=== PATIENT | male | born 1945 | race Caucasian/White ===

== ENCOUNTER 2016-04-24 15:51 | Inpatient (IN) | payer MEDICARE, BC ==
[~2016-04-24] VITALS: Ht 180.3 cm; Wt 113.1 kg
[~2016-04-24 15:51] MED LIST: ALAVERT10 M1 PO; ALIGN; ALLEGRA 180MG180 MG PO; ALLEGRA180 MG PO; ANDROGEL1.62% TOP; ANTIVERT 25MG25 MG PO; ASPIRIN 32325 MG/TA1; ASPIRIN 32325 MG/TAB PO; ASPIRIN E.C.325 MG PO; B100 COMPLEX UL1 TA1 PO; BALANCE B-1001 TA1 PO; BALANCE B-1001 TAB; BORAGE OIL PO; CALCIUM 600MG+D1 TAB PO; CALCIUM CITRATE1 TA6 PO; CALTRATE 600 +1 TAB PO; CENTRUM1 TAB PO; CINNAMON500 MG; CIPRO 500MG TA500 MG PO; CLARITIN 1010 MG/TAB PO; CLARITIN10 MG PO; CLOPIDOGREL; COLACE 100100 MG/CAP PO; CRESTOR20 MG PO; DHEA 10 MG TAB1 EACH PO; DIOVAN 160MG160 MG PO; DIOVAN 40MG40 MG PO; DIOVAN160 M1 PO; EFFIENT10 M1 PO; EFFIENT10 MG PO; FARXIGA5 PO; FISH OIL500 MG PO; FLEXERIL 1010 MG/TAB PO; FLOMAX 0.40.4 MG/CAP PO; FORTAMET1000 MG PO; GARCINIA CAMBOGIA PO; GINSENG PO; GINSENG100 M1 PO; GLUCOPHAGE XR500 M1 PO; GLUCOSAMINE & C1 CA1 PO; GLUCOSAMINE CHO1 CAP PO; HEXAVITAMIN1 TA1 PO; JANUVIA 100MG100 MG PO; JANUVIA25 MG PO; LEADER NATURAL1 SGL PO; LIORESAL 1010 MG/TAB PO; LIPITOR 40MG TA40 MG PO; MAGNESIUM250 M1 PO; MICARDIS80 MG PO; MULTI VITAMINS1 TAB PO; NATURAL POTASS595 MG PO; NITROSTAT0.4 MG SL; NITROSTAT0.4 MG/TAB SL; NORCO 325 MG-51 TAB PO; NORCO 325 MG-7.1 TAB PO; NORVASC 5MG5 MG/TAB PO; OMEGA PO; OMEGA-3 FISH1200 MG PO; PERCOCET 325 MG1 TA2 PO; PERCOCET 325 MG1 TA3 PO; PHARMASSURE ZIN50 MG PO; POTASSIUM GLUC550 M1; POTASSIUM99 M2 PO; PROBIOTIC FORMU1 CAP; PROBIOTIC-MAJOR PO; SAW PALMETTO160 M1 PO; SINEMET 25/101 UDTAB PO; TESTIM1% TD; TOPROL XL50 MG PO; TYLENOL 500MG500 MG PO; TYLENOL EXTRA500 M1 PO; Tylenol Extra Streng; ULTRAM 50MG TAB50 MG PO; ULTRAM100 MG PO; VALIUM 5MG T5 MG/TAB PO; VITAMIN D31000 I1 PO; VITAMIN E 400 U4001 PO; VITAMINC1000TA PO; VOLTAREN25 MG PO; ZEBETA10 MG PO; ZEGERID 20 MG-11 CAP PO; ZINC50 M1 PO; ZYRTEC 10MG10 MG PO; ZYRTEC10 MG PO; [UNRECOGNIZED DRUG - OTHER] PO
[2016-04-24] MEDS ORDERED: LIPITOR 40MG TA40 MG PO (16:15)
[2016-04-24] MEDS ORDERED: PREGNENOLONE PO (16:19)
[2016-04-24] MEDS ORDERED: CLARITIN 1010 MG/TAB PO (16:20)
[2016-04-24] MEDS ORDERED: ZYRTEC 10MG10 MG PO (16:22)
[2016-04-24] MEDS ORDERED: AYR SALINE MIST50 ML NS (16:22)
[2016-04-24 16:39] LABS: BASO % 0.4 % (0.0-2.0); EOS # 0.3 (0.0-0.7); EOS % 3.7 % (0-4.0); GRAN # 5.1 (1.4-6.5); GRAN % 69.1 % (42.2-75.2); HEMATOCRIT 46.8 % (42.0-52.0); HEMOGLOBIN 15.6 g/dl (13.5-18.0); LYMPH # 1.4 (1.2-3.4); LYMPH % 19.2 % (20.0-51.0); MEAN CELL VOLUME 94 fl (80.0-100.0); MEAN CORPUSCULAR HEMOGLOBIN 32 pg (27.0-31.0); MEAN CORPUSCULAR HGB CONC 33 g/dl (33.0-37.0); MONO # 0.5 (0.1-0.6); MONO % 7.3 % (1.7-9.3); PLATELET COUNT 215 K/mm3 (130-400); RED BLOOD COUNT 4.96 M/mm3 (4.20-5.60); REDCELL DISTRIBUTION WIDTH-CV 12.5 % (11.5-14.5); WHITE BLOOD COUNT 7.4 K/mm3 (4.8-10.8)
[2016-04-24 16:45] LABS: PROTHROMBIN TIME 10.9 SECONDS (9.7-12.8)
[2016-04-24 16:48] LABS: PARTIAL THROMBOPLASTIN TIME 33.4 SECONDS (26.0-37.0)
[2016-04-24 16:50] LABS: ADJUSTED CALCIUM 9.8 mg/dL (8.4-10.2); ALANINE AMINOTRANSFERASE 35 U/L (21-72); ALKALINE PHOSPHATASE 105 U/L (50-136); ANION GAP 12 mmol/L (7-16); BILIRUBIN,TOTAL 0.8 mg/dL (0.0-1.0); BLOOD UREA NITROGEN 17 mg/dL (9-20); CALCIUM 9.8 mg/dL (8.4-10.2); CARBON DIOXIDE 26 mmol/L (22-30); CHLORIDE 99 mmol/L (98-107); CREATININE, serum 0.95 mg/dL (0.66-1.25); GLUCOSE 159 mg/dL (74-106); POTASSIUM 4.8 mmol/L (3.4-5.0); SODIUM 137 mmol/L (137-145); TOTAL PROTEIN 7.3 gm/dL (6.4-8.2)
[2016-04-24 17:02] LABS: B-TYPE NATRIURETIC PEPTIDE 216 pg/mL (0-125); TROPONIN-I < 0.012 ng/mL (0.000-0.034)
[2016-04-24 21:38] VITALS: BP 155/82; PULSE 73; TEMP 98.2
[2016-04-25] VITALS (7 sets, daily range): BP systolic 126–175; BP diastolic 62–78; PULSE 58–77; TEMP 97.5–98.1
[2016-04-26] VITALS (12 sets, daily range): BP systolic 123–151; BP diastolic 65–76; PULSE 64–79; TEMP 79.9–98.7
[2016-04-27] VITALS (9 sets, daily range): BP systolic 128–163; BP diastolic 66–91; PULSE 78–88; TEMP 97.6–99.5
[2016-04-28] VITALS (12 sets, daily range): BP systolic 110–139; BP diastolic 59–78; PULSE 49–84; TEMP 97.3–98.2
[2016-04-29 04:58] VITALS: BP 171/84; PULSE 75; TEMP 99.4
[2016-04-29 09:28] LABS: BASO % 0.2 % (0.0-2.0); EOS # 0.2 (0.0-0.7); EOS % 2.6 % (0-4.0); GRAN # 6.3 (1.4-6.5); GRAN % 76.9 % (42.2-75.2); HEMATOCRIT 44.6 % (42.0-52.0); HEMOGLOBIN 14.6 g/dl (13.5-18.0); LYMPH # 1.2 (1.2-3.4); LYMPH % 14.5 % (20.0-51.0); MEAN CELL VOLUME 97 fl (80.0-100.0); MEAN CORPUSCULAR HEMOGLOBIN 32 pg (27.0-31.0); MEAN CORPUSCULAR HGB CONC 33 g/dl (33.0-37.0); MEAN PLATELET VOLUME 10.5 fl (7.4-10.4); MONO # 0.4 (0.1-0.6); MONO % 5.4 % (1.7-9.3); PLATELET COUNT 207 K/mm3 (130-400); RED BLOOD COUNT 4.61 M/mm3 (4.20-5.60); REDCELL DISTRIBUTION WIDTH-CV 12.9 % (11.5-14.5); WHITE BLOOD COUNT 8.2 K/mm3 (4.8-10.8)
[2016-04-29 09:35] LABS: ALBUMIN 3.4 gm/dL (3.5-5.0); CREATININE, serum 0.91 mg/dL (0.66-1.25); MAGNESIUM 1.6 mg/dL (1.6-2.3); PHOSPHOROUS 2.7 mg/dL (2.5-4.5); POTASSIUM 4.5 mmol/L (3.4-5.0)
[2016-04-29 10:04] VITALS: BP 133/65; PULSE 76; TEMP 98.1
[2016-04-29 13:47] VITALS: BP 108/59; PULSE 69; TEMP 98
[2016-04-29 17:35] VITALS: BP 134/61; PULSE 63; TEMP 97.9
[2016-04-29 18:15] LABS: PH 5 (5-8); SQUAMOUS EPITHELIAL None Seen /hpf; URINE APPEARANCE Clear; URINE BACTERIA None Seen /hpf; URINE BILIRUBIN Negative (NEGATIVE); URINE BLOOD 1+ (NEGATIVE); URINE COLOR Amber; URINE GLUCOSE 3+ (NEGATIVE); URINE KETONE Negative (NEGATIVE); URINE UROBILINOGEN Negative (NEGATIVE); URINE WBC 0-2 /hpf
[2016-04-29 21:11] VITALS: BP 143/67; PULSE 78; TEMP 98.4
[2016-04-30] VITALS (335 sets, daily range): BP systolic 108–154; BP diastolic 52–88; PULSE 61–84; TEMP 97.5–99.6; O2SAT 77–100
[2016-04-30] MEDS ORDERED: FARXIGA10 PO (20:53)
[2016-04-30] MEDS ORDERED: POTASSIUM PO (21:06)
[2016-05-01] VITALS (557 sets, daily range): BP systolic 104–122; BP diastolic 58–78; PULSE 77–86; TEMP 97.9–99.8; O2SAT 87–99
[2016-05-01 05:59] LABS: BASO % 0.1 % (0.0-2.0); EOS # 0.3 (0.0-0.7); EOS % 3.7 % (0-4.0); GRAN # 6.6 (1.4-6.5); HEMATOCRIT 43.9 % (42.0-52.0); HEMOGLOBIN 14.2 g/dl (13.5-18.0); LYMPH # 0.9 (1.2-3.4); LYMPH % 10.3 % (20.0-51.0); MEAN CELL VOLUME 98 fl (80.0-100.0); MEAN CORPUSCULAR HEMOGLOBIN 32 pg (27.0-31.0); MEAN CORPUSCULAR HGB CONC 32 g/dl (33.0-37.0); MEAN PLATELET VOLUME 9.7 fl (7.4-10.4); MONO # 0.6 (0.1-0.6); MONO % 7.4 % (1.7-9.3); PLATELET COUNT 226 K/mm3 (130-400); REDCELL DISTRIBUTION WIDTH-CV 12.8 % (11.5-14.5); WHITE BLOOD COUNT 8.4 K/mm3 (4.8-10.8)
[2016-05-01 06:15] LABS: ALBUMIN 3.2 gm/dL (3.5-5.0); CALCIUM 8.9 mg/dL (8.4-10.2); CREATININE, serum 0.93 mg/dL (0.66-1.25); MAGNESIUM 1.6 mg/dL (1.6-2.3); PHOSPHOROUS 3.3 mg/dL (2.5-4.5); POTASSIUM 4.7 mmol/L (3.4-5.0)
[2016-05-01] MEDS ORDERED: GLUCOPHAGE1000 MG PO (10:25)
[2016-05-02] VITALS (8 sets, daily range): BP systolic 106–145; BP diastolic 49–72; PULSE 73–94; TEMP 97.8–99.5
[2016-05-03] VITALS (8 sets, daily range): BP systolic 112–155; BP diastolic 51–65; PULSE 63–80; TEMP 96.1–98.8
[2016-05-04 01:00] VITALS: BP 142/59; PULSE 67; TEMP 97.7
[2016-05-04 04:51] VITALS: BP 156/68; PULSE 66; TEMP 98.4
[2016-05-04 09:30] VITALS: BP 131/58; PULSE 69; TEMP 98.1
[2016-05-04 13:28] VITALS: BP 125/58; PULSE 66; TEMP 98.5
[2016-05-04 17:50] VITALS: BP 147/64; PULSE 66; TEMP 98.1
[2016-05-04 21:48] VITALS: BP 145/69; PULSE 65; TEMP 98.4
[2016-05-05 05:12] VITALS: BP 147/72; PULSE 63; TEMP 97.2
[2016-05-05 07:00] VITALS: BP 149/72; PULSE 68; TEMP 97.4
[2016-05-05 10:00] VITALS: BP 138/62; PULSE 68; TEMP 97.8
[2016-05-05 15:05] VITALS: BP 122/67; PULSE 66; TEMP 98.2
[2016-05-05 18:13] VITALS: BP 122/63; PULSE 65; TEMP 98.1
[2016-05-05 22:47] VITALS: BP 123/56; PULSE 60; TEMP 98.1
[2016-05-06 06:00] VITALS: BP 145/66; PULSE 64; TEMP 97.5
[2016-05-06 07:05] VITALS: BP 130/63; PULSE 66; TEMP 97.8
[2016-05-06 09:59] VITALS: BP 132/60; PULSE 64; TEMP 97.4
[2016-05-06 13:14] VITALS: BP 124/66; PULSE 59; TEMP 97.5
[2016-05-06 13:19] LABS: INR 1.2 (0.8-3.0); PROTHROMBIN TIME 12.8 SECONDS (9.7-12.8)
[2016-05-06 17:25] VITALS: BP 147/57; PULSE 69; TEMP 97.2
== END 2016-05-06 22:00 | disposition home or self-care (01) | DRG 165 ==
LOC: COL.ER 15:51 → SURG 19:34 → ICU 04-25 11:28 → SURG 05-01 15:00
PROVIDERS: Family Medicine; Surgery; Urology
PROC: 0W9900Z Drainage of Right Pleural Cavity with Drainage Device, Open Approach (ICD-10-PCS; 2016-04-24)
PROC: 0W9900Z Drainage of Right Pleural Cavity with Drainage Device, Open Approach (ICD-10-PCS; 2016-04-26)
PROC: 0W9930Z Drainage of Right Pleural Cavity with Drainage Device, Percutaneous Approach (ICD-10-PCS; 2016-04-27)
PROC: 0W9930Z Drainage of Right Pleural Cavity with Drainage Device, Percutaneous Approach (ICD-10-PCS; 2016-04-28)
PROC: 0B5N4ZZ Destruction of Right Pleura, Percutaneous Endoscopic Approach (ICD-10-PCS; 2016-04-30)
PROC: 0BBC4ZX Excision of Right Upper Lung Lobe, Percutaneous Endoscopic Approach, Diagnostic (ICD-10-PCS; principal; 2016-04-30 15:45)
DX: J93.11 Primary spontaneous pneumothorax (principal); I25.10 Atherosclerotic heart disease of native coronary artery without angina pectoris; Z95.5 Presence of coronary angioplasty implant and graft; E11.9 Type 2 diabetes mellitus without complications; I10 Essential (primary) hypertension; R31.9 Hematuria, unspecified; G47.33 Obstructive sleep apnea (adult) (pediatric); J43.9 Emphysema, unspecified
CPT/HCPCS: A7048; A9284; G0378; J0690; J1170; J1650; J1815; J2250; J2270; J2704; J3010; J7030; J7120

== ENCOUNTER 2018-04-06 20:59 | Emergency (ER) | payer MEDICARE, BC ==
[~2018-04-06] VITALS: Ht 180.3 cm; Wt 116.4 kg
[~2018-04-06 20:59] MED LIST changes: +AYR SALINE MIST50 ML NS; +FARXIGA10 PO; +GLUCOPHAGE1000 MG PO; +POTASSIUM PO; +PREGNENOLONE PO
[2018-04-06] MEDS ORDERED: TYLENOL 500MG500 MG PO (21:42)
[2018-04-06] MEDS ORDERED: DULCOLAX STOOL100 MG PO (21:47)
[2018-04-06] MEDS ORDERED: BYDUREON PEN2 MG SQ (21:49)
[2018-04-06] MEDS ORDERED: LEVEMIR100 U/ML SQ (21:50)
[2018-04-06] MEDS ORDERED: COUMADIN 2MG2 MG/TAB PO (21:53)
[2018-04-06] MEDS ORDERED: BENICAR 20MG TA20 MG PO (21:54)
[2018-04-06] MEDS ORDERED: OXY IR5 MG PO (21:55)
[2018-04-06 22:15] LABS: BASO % 0.4 % (0.0-2.0); EOS # 0.3 (0.0-0.7); EOS % 3.3 % (0-4.0); GRAN # 7.6 (1.4-6.5); GRAN % 77.2 % (42.2-75.2); HEMOGLOBIN 11.9 g/dl (13.5-18.0); LYMPH % 9.9 % (20.0-51.0); MEAN CELL VOLUME 96 fl (80.0-100.0); MEAN CORPUSCULAR HEMOGLOBIN 32 pg (27.0-31.0); MEAN CORPUSCULAR HGB CONC 33 g/dl (33.0-37.0); MEAN PLATELET VOLUME 10.1 fl (7.4-10.4); MONO # 0.9 (0.1-0.6); MONO % 8.9 % (1.7-9.3); PLATELET COUNT 190 K/mm3 (130-400); RED BLOOD COUNT 3.74 M/mm3 (4.20-5.60); REDCELL DISTRIBUTION WIDTH-CV 12.8 % (11.5-14.5)
[2018-04-06 22:20] LABS: HEMATOCRIT 35.8 % (42.0-52.0)
[2018-04-06 22:20] LABS: INR 2.1 (0.8-3.0); PROTHROMBIN TIME 23.4 SECONDS (9.7-12.8)
[2018-04-06 22:27] LABS: CALCIUM 8.9 mg/dL (8.4-10.2); CREATININE, serum 0.92 mg/dL (0.66-1.25); POTASSIUM 4.3 mmol/L (3.4-5.0)
[2018-04-06 23:19] VITALS: BP 127/65; PULSE 86; TEMP 99
== END 2018-04-06 23:39 | disposition home or self-care (01) ==
LOC: COL.ER 20:59
PROVIDERS: Emergency Medicine
DX: T81.89XA Other complications of procedures, not elsewhere classified, initial encounter (principal); S80.821A Blister (nonthermal), right lower leg, initial encounter; G89.18 Other acute postprocedural pain; Z79.82 Long term (current) use of aspirin; Z96.651 Presence of right artificial knee joint
CPT/HCPCS: J1170

== ENCOUNTER → 2018-08-01 | Outpatient (CLI) | payer OTHER ==
[~2018-08-01] MED LIST changes: +BENICAR 20MG TA20 MG PO; +BYDUREON PEN2 MG SQ; +COUMADIN 2MG2 MG/TAB PO; +DULCOLAX STOOL100 MG PO; +LEVEMIR100 U/ML SQ; +OXY IR5 MG PO
== END ==
LOC: COL.RAD 10:43
DX: M79.89 Other specified soft tissue disorders (principal); R60.0 Localized edema; Z96.651 Presence of right artificial knee joint

== ENCOUNTER 2021-12-28 09:39 | Emergency (ER) | payer MEDICARE, BC ==
[~2021-12-28] VITALS: Ht 177.8 cm; Wt 115.0 kg
[2021-12-28 09:58] VITALS: TEMP 98
[2021-12-28 10:28] LABS: BASO # 0.1 K/mm3 (0.0-0.2); BASO % 0.5 % (0.0-2.0); EOS # 0.3 K/mm3 (0.0-0.7); EOS % 2.6 % (0.0-4.0); GRAN # 7.5 K/mm3 (1.4-6.5); GRAN % 77.9 % (42.2-75.2); HEMATOCRIT 49.2 % (42.0-52.0); HEMOGLOBIN 16.6 g/dl (13.5-18.0); LYMPH # 1.1 K/mm3 (1.2-3.4); LYMPH % 11.8 % (20.0-51.0); MEAN CELL VOLUME 90 fl (80.0-100.0); MEAN CORPUSCULAR HEMOGLOBIN 30 pg (27-31); MEAN CORPUSCULAR HGB CONC 34 g/dl (33.0-37.0); MEAN PLATELET VOLUME 10.2 fl (7.4-10.4); MONO # 0.7 K/mm3 (0.1-0.6); MONO % 6.9 % (1.7-9.3); PLATELET COUNT 249 K/mm3 (130-400); RED BLOOD COUNT 5.47 M/mm3 (4.20-5.60); REDCELL DISTRIBUTION WIDTH-CV 14.9 % (11.5-14.5)
[2021-12-28 10:29] LABS: INR 1.1 (0.8-3.0); PROTHROMBIN TIME 12.1 SECONDS (9.7-12.8)
[2021-12-28 11:51] VITALS: BP 158/78; PULSE 69
== END 2021-12-28 11:50 | disposition home or self-care (01) ==
LOC: COL.ER 09:39
PROVIDERS: Physician Assistant
DX: R04.0 Epistaxis (principal); I25.10 Atherosclerotic heart disease of native coronary artery without angina pectoris; I25.2 Old myocardial infarction; Z28.310 Unvaccinated for COVID-19; Z79.82 Long term (current) use of aspirin